=== PATIENT | female | born 2000 | race Two or more races ===

== ENCOUNTER 2022-11-26 10:10 | Inpatient (IN) | payer OTHER ==
[2022-11-26] MEDS ORDERED: ELECTROLYTE-148 SOLN 1,000 ML IV SCH (11:40)
[2022-11-26 12:37] LABS: BASO % 0.4 % (0-2.0); EOS % 1.6 % (0-4.5); HEMATOCRIT 30.5 % (35.4-49); HEMOGLOBIN 9.5 GM/dL (11.7-16.9); LYMPH % 19.2 % (8-40); MCH 23.5 pg (25.7-33.7); MCHC 31.3 g/dl (32.0-35.9); MEAN CELL VOLUME 75.2 fl (80-96); MEAN PLT VOLUME 8.6 fl (7.5-11.1); MONO % 7.2 % (3.8-10.2); NEUT % 71.6 % (42.8-82.8); PLATELET COUNT 211 10^3/uL (134-434); RBC 4.06 M/mm3 (4.00-5.60); RDW 30.3 % (11.9-15.9); WHITE BLOOD COUNT 8.3 K/mm3 (4.0-10.0)
[2022-11-26 12:52] VITALS: BMI 29.8
[2022-11-26] MEDS: ELECTROLYTE-148 SOLN 1,000 ML IV SCH ×2 (13:00→18:10)
[2022-11-26 13:03] LABS: BLOOD UREA NITROGEN 13.1 mg/dL (7-18); CALCIUM 8.6 mg/dL (8.5-10.1)
[2022-11-26 13:07] LABS: CREATININE 0.4 mg/dL (0.55-1.3)
[2022-11-26 13:14] LABS: INR 0.87 (0.83-1.09); PROTHROMBIN TIME (PATIENT) 10.1 SEC (9.7-13.0)
[2022-11-26 13:17] LABS: ACTIVATED PTT 25.7 SECONDS (25.2-36.5)
[2022-11-26] MEDS ORDERED: FENTANYL/BUPIVACAINE/NS/PF - PCEA - 50 ML DISP.SYRIN EP ONE (17:41)
[2022-11-26] MEDS ORDERED: BUPIVACAINE HCL/PF 0.25% (2.5MG/ML) 10 ML VIAL ONE (17:44)
[2022-11-26] MEDS ORDERED: NALOXONE HCL 0.4 MG/ML VIAL IVPUSH PRN (18:21)
[2022-11-26] MEDS ORDERED: FENTANYL/BUPIVACAINE/NS/PF - PCEA - 50 ML DISP.SYRIN EP SCH (18:30)
[2022-11-26] MEDS ORDERED: OXYTOCIN 20 UNITS in 0.9% NS 20 UNIT/1,000 ML INFUS.BAG IV ONE (19:00)
[2022-11-26] MEDS ORDERED: LIDOCAINE HCL 1% PRESERVATIVE FREE - 30ML VIAL ONE (19:00)
[2022-11-26] MEDS ORDERED: BENZOCAINE 20% 57 GM BOTTLE TP PRN (20:47)
[2022-11-26] MEDS ORDERED: METHYLERGONOVINE MALEATE 0.2 MG/1 ML AMP IM PRN (20:47)
[2022-11-26] MEDS ORDERED: BISACODYL 10 MG SUPP.RECT RC PRN (20:47)
[2022-11-26] MEDS ORDERED: oxyCODONE HCL 5 MG TABLET PO PRN (20:47)
[2022-11-26] MEDS ORDERED: ACETAMINOPHEN 325 MG TABLET (FP) PO PRN (20:47)
[2022-11-26] MEDS ORDERED: WITCH HAZEL 50% (TUCKS) 40 PAD/JAR PAD TP PRN (20:47)
[2022-11-26] MEDS ORDERED: BENZOCAINE 28 GM HEMORRHOIDAL OINTMENT TP PRN (20:47)
[2022-11-26] MEDS ORDERED: OXYTOCIN 20 UNITS in 0.9% NS 20 UNIT/1,000 ML INFUS.BAG IV SCH (21:00)
[2022-11-26 21:32] VITALS: RESP 18
[2022-11-26 21:34] LABS: CORD BASE EXCESS -5.9 mmol/L (0-2); CORD HCO3 19.2 mmHg (20-29); CORD PCO2 36.9 mmHg (30-78); CORD pH 7.335 (7.14-7.44)
[2022-11-26 21:37] LABS: CORD BASE EXCESS -5.1 mmol/L (0-2); CORD PCO2 48.1 mmHg (30-78); CORD pH 7.278 (7.14-7.44)
[2022-11-26] MEDS ORDERED: IBUPROFEN 600 MG TABLET (FP) PO ONE (21:43)
[2022-11-26] MEDS: IBUPROFEN 600 MG TABLET (FP) PO PRN (21:48)
[2022-11-27] MEDS: DOCUSATE SODIUM 100 MG CAPSULE (FP) PO SCH ×3 (00:33→21:08)
[2022-11-27] MEDS: IBUPROFEN 600 MG TABLET (FP) PO PRN (04:58)
[2022-11-27 08:39] LABS: BASO % 0.3 % (0-2.0); EOS % 0.1 % (0-4.5); HEMATOCRIT 24.8 % (32.4-45.2); HEMOGLOBIN 7.8 GM/dL (10.7-15.3); LYMPH % 7.7 % (8-40); MCH 23.6 pg (25.7-33.7); MCHC 31.3 g/dl (32.0-36.0); MEAN CELL VOLUME 75.2 fl (80-96); MEAN PLT VOLUME 8.5 fl (7.5-11.1); MONO % 5.7 % (3.8-10.2); NEUT % 86.2 % (42.8-82.8); PLATELET COUNT 191 10^3/uL (134-434); RBC 3.29 M/mm3 (3.60-5.2); RDW 29.9 % (11.6-15.6); WHITE BLOOD COUNT 11.5 K/mm3 (4.0-10.0)
[2022-11-27 09:18] LABS: ANISOCYTOSIS 2+; MACROCYTOSIS 1+
[2022-11-27] MEDS ORDERED: SENNOSIDES/DOCUSATE COMBO (SENNA PLUS) TABLET (UD) PO PRN (22:00)
[2022-11-28 09:13] VITALS: BP 121/67; PULSE 71; TEMP 98.7
== END 2022-11-28 13:46 | disposition home or self-care (01) | DRG 560 ==
LOC: JDEL 10:10 → EDSEX 12:20 → JLDR 12:20 → EDBD 12:20 → J3W 22:20
PROVIDERS: ADMIT Obstetrics & Gynecology; ATTEND Obstetrics & Gynecology
PROC: 10E0XZZ Delivery of Products of Conception, External Approach (ICD-10-PCS; principal; 2022-11-26)
PROC: 0W8NXZZ Division of Female Perineum, External Approach (ICD-10-PCS; 2022-11-26)
DX: O80 Encounter for full-term uncomplicated delivery (principal); Z3A.40 40 weeks gestation of pregnancy; Z37.0 Single live birth
CPT/HCPCS: 36415; 36600; 59025; 59409; 80048; 82803; 85025; 85610; 85730; 86780; 86850; 86900; 86901; C9803-CS; U0003; U0005